=== PATIENT | female | born 1960 | race Caucasian/White ===

== ENCOUNTER 2018-10-25 09:31 | Inpatient (IN) | payer OTHER ==
[2018-10-25 12:27] VITALS: BMI 43.4
--- NOTE | 2018-10-25 12:59 | HP ---
CIWA Score Nausea/Vomitin Muscle Tremors: 2 Anxiety: 2 Agitation: 2 Paroxysmal Sweats: 1-Minimal Palms Moist Orientation: 0-Oriented Tacttile Disturbances: 1-Very Mild Itch/Numbness Auditory Disturbances: 1-Very Mild Visual Disturbances: 0-None Headache: 2-Mild CIWA-Ar Total Score: 13 - Admission Criteria [facility]ASAS Guidelines: Admission for Medically Managed Detox: Requires at least one of the followin. CIWA greater than 12 2. Seizures within the past 24 hours 3. Delirium tremens within the past 24 hours 4. Hallucinations within the past 24 hours 5. Acute intervention needed for co occurring medical disorder 6. Acute intervention needed for co occurring psychiatric disorder 7. Severe withdrawal that cannot be handled at a lower level of care (continued vomiting, continued diarrhea, abnormal vital signs) requiring intravenous medication and/or fluids 8. Patient presents the following: CIWA greater than 12 Admission Criteria Met: Admission criteria met Admission ROS [facility] - HPI Chief Complaint: i need help to stop drinking alcohol and marijuana Allergies/Adverse Reactions: Allergies Allergy/AdvReac Type Severity Reaction Status Date / Time No Known Allergies Allergy Verified 10/25/18 13:24 History of Present Illness: this 57 years old female with alcohol and marijuana dependence,seeking detox, last treatment in 06/06 ,unknown facility low back pain herniated disc l1 to l5,arthritis both knees,ambulation with walker syncope alcohol related coughing with greenish mucous for 2 weeks longest sobriety 13 months Exam Limitations: No Limitations - Ebola screening Have you traveled outside of the country in the last 21 days: No Have you had contact with anyone from an Ebola affected area: No Have you been sick,other than usual withdrawal symptoms: No Do you have a fever: No - Review of Systems Constitutional: Loss of Appetite, Malaise, Night Sweats, Changes in sleep, Weakness EENT: reports: Nose Congestion Respiratory: reports: No Symptoms reported, Other (coughing with greenish mucous 2 weeks) Cardiac: reports: Palpitations GI: reports: Nausea, Vomiting, Abdominal cramping : reports: No Symptoms Reported Musculoskeletal: reports: Back Pain, Joint Pain, Muscle Pain, Joint Stiffness, Other (right hip replacement in 2016) Integumentary: reports: Dryness Neuro: reports: Headache, Tremors Endocrine: reports: No Symptoms Reported Hematology: reports: No Symptoms Reported Psychiatric: reports: No Sypmtoms Reported, Judgement Intact, Mood/Affect Appropiate, Orientated x3 Patient History - Patient Medical History Hx Anemia: No Hx Asthma: No Hx Chronic Obstructive Pulmonary Disease (COPD): No Hx Cancer: No Hx Cardiac Disorders: No Hx Congestive Heart Failure: No Hx Hypertension: No Hx Hypercholesterolemia: No Hx Pacemaker: No HX Cerebrovascular Accident: No Hx Seizures: No Hx Dementia: No Hx Diabetes: No Hx Gastrointestinal Disorders: No Hx Liver Disease: No Hx Genitourinary Disorders: No Hx Sexually Transmitted Disorders: No Hx Renal Disease (ESRD): No Hx Thyroid Disease: No Hx Human Immunodeficiency Virus (HIV): No (last 2017 negative) Hx Hepatitis C: No Hx Depression: Yes (NO MED) Hx Suicide Attempt: No Hx Bipolar Disorder: No Hx Schizophrenia: No Other Medical History: no suciidal,no homicidal - Patient Surgical History Past Surgical History: Yes Hx Orthopedic Surgery: Yes (right hip replacement in 2016) - PPD History Documented Results: Negative w/o proof Implanted On Prior [facility] Admission?: Yes Date: 08/26/13 Results: 0 mm PPD to be Administered?: Yes - Reproductive History Patient is a Female of Child Bearing Age (11 -55 yrs old): Yes Last Menstrual Period: 05/04/99 Patient : No - Smoking Cessation Smoking history: Never smoked - Substance & Tx. History Hx Alcohol Use: Yes Hx Substance Use: Yes Substance Use Type: Alcohol, Marijuana Hx Substance Use Treatment: Yes (06/06 did not recal facility) - Substances Abused Alcohol Route: Oral Frequency: Daily Amount used: 3 pints of vodka Age of first use: 24 Date of Last Use: 10/25/18 Marijuana/Hashish Route: Smoking Frequency: 1-3 times last 30 days Amount used: 10$ Age of first use: 57 Date of Last Use: 10/23/18 Family Disease History - Family Disease History Family Disease History: Diabetes: Grandparent, CA: Grandparent, Father ( esophagus), Mother (breast) Admission Physical Exam [facility] - Vital Signs Vital Signs: Vital Signs - 24 hr 10/25/18 12:21 Temperature 96.4 F L Pulse Rate 116 H Respiratory 18 Rate Blood Pressure 143/93 - Physical General Appearance: Yes: Moderate Distress, Tremorous, Irritable, Sweating, Anxious HEENTM: Yes: Normal ENT Inspection, LANCE, Pharynx Normal Respiratory: Yes: Lungs Clear, Normal Breath Sounds, No Respiratory Distress Neck: Yes: Within Normal Limits, Supple, Trachea in good position Breast: Yes: Breast Exam Deferred Cardiology: Yes: Tachycardia Abdominal: Yes: Within Normal Limits, Normal Bowel Sounds, Soft, Pulsatile Mass Genitourinary: Yes: Within Normal Limits Back: Yes: Muscle Spasm Musculoskeletal: Yes: Back pain, Joint Stiffness, Muscle Pain Extremities: Yes: Tremors, Other (ambulation with walker) Neurological: Yes: Within Normal Limits, trial paralegal II-XII NML intact, Alert, Motor Strength 5/5 Integumentary: Yes: Dry Lymphatic: Yes: Within Normal Limits - Diagnostic (1) Alcohol dependence with uncomplicated intoxication Current Visit: Yes Status: Acute (2) Alcohol dependence with intoxication, uncomplicated Current Visit: Yes Status: Acute (3) Low back pain Current Visit: No Status: Acute (4) Herniated intervertebral disc of lumbar spine Current Visit: Yes Status: Acute (5) Arthritis Current Visit: Yes Status: Acute (6) History of right hip replacement Current Visit: Yes Status: Acute (7) Obese Current Visit: Yes Status: Acute (8) Acute bronchitis Current Visit: Yes Status: Acute (9) Walker as ambulation aid Current Visit: Yes Status: Acute Cleared for Admission [facility] - Detox or Rehab [facility] Level of Care: Medically Managed Detox Regimen/Protocol: Librium [facility] Breath Alcohol Content Breath Alcohol Content: 0.200 Urine Pregancy Test - Result Urine Test Results: Negative- NO Line Present Urine Drug Screen - Results Drug Screen Negative: No Urine Drug Screen Results: THC-Marijuana, BZO-Benzodiazepines
[2018-10-25] MEDS ORDERED: LOPERAMIDE HCL 2 MG CAPSULE PO PRN (13:19)
[2018-10-25] MEDS ORDERED: MAG HYDROX/AL HYDROX/SIMETH 30 ML UNIT-DOSE CUP PO PRN (13:19)
[2018-10-25] MEDS ORDERED: MENTHOL/PHENOL 1 EACH UD MM PRN (13:19)
[2018-10-25] MEDS ORDERED: MAGNESIUM HYDROX 2400MG/30ML ORAL SUSPENSION 30 ML CUP PO PRN (13:19)
[2018-10-25] MEDS ORDERED: chlordiazePOXIDE HCL 25 MG CAPSULE PO PRN (13:19)
[2018-10-25] MEDS ORDERED: MAGNESIUM CITRATE 300 ML BOTTLE PO PRN (13:19)
[2018-10-25] MEDS ORDERED: P-EPHED 60MG/TRIPROLIDI 2.5MG TABLET PO PRN (13:19)
--- NOTE | 2018-10-25 15:52 | EKG ---
Test Reason : Blood Pressure : / mmHG Vent. Rate : 103 BPM Atrial Rate : 103 BPM P-R Int : 150 ms QRS Dur : 090 ms QT Int : 354 ms P-R-T Axes : 039 019 037 degrees QTc Int : 463 ms SINUS TACHYCARDIA OTHERWISE NORMAL ECG NO PREVIOUS ECGS AVAILABLE Confirmed by RADHAMES MARCUS MD ([id number]) on 10/25/2018 3:52:15 PM Referred By: Confirmed By:RADHAMES MARCUS MD
[2018-10-25] MEDS: AMOX TR/POT CLAV 500MG/125MG TABLETS (FP) PO SCH (17:25)
[2018-10-25] MEDS: chlordiazePOXIDE HCL 25 MG CAPSULE PO SCH ×2 (17:25→22:23)
[2018-10-25] MEDS: ACETAMINOPHEN 325 MG TABLET (FP) PO PRN ×2 (17:26→22:24)
[2018-10-25] MEDS: guaiFENesin/D-METHORPHAN HB 10 ML UNIT-DOSE CUPS PO PRN (17:26)
[2018-10-25 17:35] LABS: URINE APPEARANCE CLOUDY; URINE BILIRUBIN NEGATIVE (<2.0 mg/dL); URINE COLOR YELLOW; URINE GLUCOSE (UA) NEGATIVE (NEGATIVE); URINE KETONE NEGATIVE (NEGATIVE); URINE LEUK ESTERASE 3+ (NEGATIVE); URINE NITRITE NEGATIVE (NEGATIVE); URINE PROTEIN 1+ (NEGATIVE); URINE UROBILINOGEN NEGATIVE mg/dL (0.2-1.0)
[2018-10-25 19:38] LABS: EPI CELLS RARE /HPF (FEW)
[2018-10-25 19:39] LABS: URINE MUCUS RARE
[2018-10-25] MEDS: THIAMINE HCL 100 MG TABLET (FP) PO SCH (22:23)
[2018-10-25] MEDS: MELATONIN 5 MG TABLETS PO PRN (22:24)
[2018-10-26] MEDS: chlordiazePOXIDE HCL 25 MG CAPSULE PO SCH ×4 (05:09→22:51)
[2018-10-26] MEDS: AMOX TR/POT CLAV 500MG/125MG TABLETS (FP) PO SCH ×2 (07:56→20:18)
[2018-10-26 10:13] LABS: HEMOGLOBIN 12.2 GM/dL (10.7-15.3); MCH 33.6 pg (25.7-33.7); MCHC 33.9 g/dl (32.0-36.0); MEAN PLT VOLUME 9.3 fl (7.5-11.1); PLATELET COUNT 296 K/MM3 (134-434); RBC 3.64 M/mm3 (3.60-5.2); RDW 17.9 % (11.6-15.6); WHITE BLOOD COUNT 8.4 K/mm3 (4.0-10.0)
[2018-10-26] MEDS: PRENATAL VITAMINS W/ FOLIC ACID TABLET (FP) PO SCH (10:31)
[2018-10-26] MEDS: guaiFENesin/D-METHORPHAN HB 10 ML UNIT-DOSE CUPS PO PRN (10:34)
[2018-10-26 11:28] LABS: ALBUMIN 3.3 g/dl (3.4-5.0); ALK PHOS 100 U/L (45-117); ANION GAP 13 MMOL/L (8-16); BILIRUBIN,TOTAL 0.5 mg/dL (0.2-1); BLOOD UREA NITROGEN 8 mg/dL (7-18); CALCIUM 8.3 mg/dL (8.5-10.1); CHLORIDE 106 mmol/L (98-107); CO2 24 mmol/L (21-32); CREATININE 0.9 mg/dL (0.55-1.3); GLUCOSE,RANDOM 124 mg/dL (74-106); POTASSIUM 3.9 mmol/L (3.5-5.1); SGOT/AST 80 U/L (15-37); SGPT/ALT 82 U/L (13-61); SODIUM 143 mmol/L (136-145); TOT PROT 7.1 g/dl (6.4-8.2)
--- NOTE | 2018-10-26 12:41 | PN ---
[facility] CIWA - CIWA Score Nausea/Vomitin-Mild Nausea/No Vomiting Muscle Tremors: 4-Moderate,w/Arms Extend Anxiety: 3 Agitation: 3 Paroxysmal Sweats: 3 Orientation: 0-Oriented Tacttile Disturbances: 0-None Auditory Disturbances: 0-None Visual Disturbances: 0-None Headache: 1-Very Mild CIWA-Ar Total Score: 15 S Progress Note (SOAP) Subjective: interrupted sleep agitation anxiety sweats shakes body aches Objective: 10/26/18 12:39 Vital Signs Temperature 96.8 F L 10/26/18 11:44 Pulse Rate 104 H 10/26/18 11:44 Respiratory Rate 19 10/26/18 11:44 Blood Pressure 136/83 10/26/18 11:44 O2 Sat by Pulse Oximetry (%) Laboratory Tests 10/25/18 10/25/18 10/26/18 14:01 14:08 06:00 WBC 8.4 RBC 3.64 Hgb 12.2 Hct 36.0 MCV 99.0 H MCH 33.6 D MCHC 33.9 RDW 17.9 H Plt Count 296 D MPV 9.3 Sodium Potassium Chloride Carbon Dioxide Anion Gap BUN Creatinine Creat Clearance w eGFR Random Glucose Calcium Total Bilirubin AST ALT Alkaline Phosphatase Total Protein Albumin Urine Color Yellow Urine Appearance Cloudy Urine pH 5.0 Ur Specific [place] 1.028 Urine Protein 1+ H Urine Glucose (UA) Negative Urine Ketones Negative Urine Blood Negative Urine Nitrite Negative Urine Bilirubin Negative Urine Urobilinogen Negative Ur Leukocyte Esterase 3+ H Urine WBC (Auto) 547 Urine RBC (Auto) 6 Ur Epithelial Cells Rare Urine Mucus Rare HIV 1&2 Antibody Screen Negative HIV P24 Antigen Negative 10/26/18 06:00 WBC RBC Hgb Hct MCV MCH MCHC RDW Plt Count MPV Sodium 143 Potassium 3.9 Chloride 106 Carbon Dioxide 24 Anion Gap 13 BUN 8 Creatinine 0.9 Creat Clearance w eGFR > 60 Random Glucose 124 H Calcium 8.3 L Total Bilirubin 0.5 AST 80 H ALT 82 H Alkaline Phosphatase 100 Total Protein 7.1 Albumin 3.3 L Urine Color Urine Appearance Urine pH Ur Specific [place] Urine Protein Urine Glucose (UA) Urine Ketones Urine Blood Urine Nitrite Urine Bilirubin Urine Urobilinogen Ur Leukocyte Esterase Urine WBC (Auto) Urine RBC (Auto) Ur Epithelial Cells Urine Mucus HIV 1&2 Antibody Screen HIV P24 Antigen aaox3 ambulating no acute distress Assessment: 10/26/18 12:41 withdrawal sx Plan: continue detox increase fluids cont with ABX as ordered
[2018-10-26] MEDS: hydrOXYzine PAMOATE 50 MG CAPSULE (FP) PO PRN (21:54)
[2018-10-26] MEDS: THIAMINE HCL 100 MG TABLET (FP) PO SCH (21:54)
[2018-10-26] MEDS: IBUPROFEN 400 MG TABLET (FP) PO PRN (21:55)
[2018-10-27] MEDS: chlordiazePOXIDE HCL 25 MG CAPSULE PO SCH ×2 (06:27→10:46)
[2018-10-27] MEDS: IBUPROFEN 400 MG TABLET (FP) PO PRN ×2 (06:28→15:30)
[2018-10-27] MEDS: AMOX TR/POT CLAV 500MG/125MG TABLETS (FP) PO SCH ×2 (08:06→17:26)
[2018-10-27] MEDS: PRENATAL VITAMINS W/ FOLIC ACID TABLET (FP) PO SCH (10:46)
[2018-10-27] MEDS: guaiFENesin/D-METHORPHAN HB 10 ML UNIT-DOSE CUPS PO PRN ×3 (10:47→22:31)
[2018-10-27 13:34] LABS: URINE APPEARANCE CLEAR; URINE BILIRUBIN NEGATIVE (<2.0 mg/dL); URINE COLOR AMBER; URINE GLUCOSE (UA) NEGATIVE (NEGATIVE); URINE KETONE TRACE (NEGATIVE); URINE LEUK ESTERASE NEGATIVE (NEGATIVE); URINE NITRITE NEGATIVE (NEGATIVE); URINE PROTEIN 1+ (NEGATIVE)
[2018-10-27 13:57] LABS: CALCIUM OXALATE CRYSTALS FEW /hpf (NONE SEEN); EPI CELLS RARE /HPF (FEW); URINE BACTERIA RARE /hpf (NONE SEEN); URINE MUCUS RARE
--- NOTE | 2018-10-27 14:19 | PN ---
S CIWA - CIWA Score Nausea/Vomitin Muscle Tremors: 2 Anxiety: 2 Agitation: 2 Paroxysmal Sweats: 2 Orientation: 0-Oriented Tacttile Disturbances: 2-Mild Itch/Numbness/Burn Auditory Disturbances: 1-Very Mild Visual Disturbances: 1-Very Mild Sensitivity Headache: 1-Very Mild CIWA-Ar Total Score: 15 S Progress Note (SOAP) Subjective: Hip pain, r/t OA, diarrhea, shakes and sweats Objective: 10/27/18 14:18 Vital Signs 10/27/18 10/27/18 10/27/18 07:29 09:34 14:08 Temperature 98.2 F 98.2 F 98.4 F Pulse Rate 70 113 H 102 H Respiratory 18 19 18 Rate Blood Pressure 124/88 135/76 146/82 Laboratory Last Values WBC 8.4 K/mm3 (4.0-10.0) 10/26/18 06:00 RBC 3.64 M/mm3 (3.60-5.2) 10/26/18 06:00 Hgb 12.2 GM/dL (10.7-15.3) 10/26/18 06:00 Hct 36.0 % (32.4-45.2) 10/26/18 06:00 MCV 99.0 fl (80-96) H 10/26/18 06:00 MCH 33.6 pg (25.7-33.7) D 10/26/18 06:00 MCHC 33.9 g/dl (32.0-36.0) 10/26/18 06:00 RDW 17.9 % (11.6-15.6) H 10/26/18 06:00 Plt Count 296 K/MM3 (134-434) D 10/26/18 06:00 MPV 9.3 fl (7.5-11.1) 10/26/18 06:00 Sodium 143 mmol/L (136-145) 10/26/18 06:00 Potassium 3.9 mmol/L (3.5-5.1) 10/26/18 06:00 Chloride 106 mmol/L (98-107) 10/26/18 06:00 Carbon Dioxide 24 mmol/L (21-32) 10/26/18 06:00 Anion Gap 13 MMOL/L (8-16) 10/26/18 06:00 BUN 8 mg/dL (7-18) 10/26/18 06:00 Creatinine 0.9 mg/dL (0.55-1.3) 10/26/18 06:00 Creat Clearance w eGFR > 60 (>60) 10/26/18 06:00 Random Glucose 124 mg/dL (74-106) H 10/26/18 06:00 Calcium 8.3 mg/dL (8.5-10.1) L 10/26/18 06:00 Total Bilirubin 0.5 mg/dL (0.2-1) 10/26/18 06:00 AST 80 U/L (15-37) H 10/26/18 06:00 ALT 82 U/L (13-61) H 10/26/18 06:00 Alkaline Phosphatase 100 U/L (45-117) 10/26/18 06:00 Total Protein 7.1 g/dl (6.4-8.2) 10/26/18 06:00 Albumin 3.3 g/dl (3.4-5.0) L 10/26/18 06:00 Urine Color [place] 10/27/18 11:11 Urine Appearance Clear 10/27/18 11:11 Urine pH 5.0 (5.0-8.0) 10/27/18 11:11 Ur Specific [place] 1.028 (1.010-1.035) 10/27/18 11:11 Urine Protein 1+ (NEGATIVE) H 10/27/18 11:11 Urine Glucose (UA) Negative (NEGATIVE) 10/27/18 11:11 Urine Ketones Trace (NEGATIVE) H 10/27/18 11:11 Urine Blood Negative (NEGATIVE) 10/27/18 11:11 Urine Nitrite Negative (NEGATIVE) 10/27/18 11:11 Urine Bilirubin Negative (<2.0 mg/dL) 10/27/18 11:11 Urine Urobilinogen 2.0 mg/dL (0.2-1.0) H 10/27/18 11:11 Ur Leukocyte Esterase Negative (NEGATIVE) 10/27/18 11:11 Urine WBC (Auto) 5 /hpf (3-5) 10/27/18 11:11 Urine RBC (Auto) 1 /hpf (0-3) 10/27/18 11:11 Ur Epithelial Cells Rare /HPF (FEW) 10/27/18 11:11 Calcium Oxalate Crystal Few /hpf (NONE SEEN) 10/27/18 11:11 Urine Bacteria Rare /hpf (NONE SEEN) 10/27/18 11:11 Urine Mucus Rare 10/27/18 11:11 RPR Titer Nonreactive (NONREACTIVE) 10/26/18 06:00 HIV 1&2 Antibody Screen Negative 10/25/18 14:08 HIV P24 Antigen Negative 10/25/18 14:08 Labs noted Assessment: 10/27/18 14:18 Withdrawal sx Plan: Continue detox
[2018-10-27] MEDS: chlordiazePOXIDE 5 MG CAPSULE PO SCH ×2 (17:26→22:30)
[2018-10-27] MEDS: THIAMINE HCL 100 MG TABLET (FP) PO SCH (22:30)
[2018-10-27] MEDS: ACETAMINOPHEN 325 MG TABLET (FP) PO PRN (22:31)
[2018-10-27] MEDS: MELATONIN 5 MG TABLETS PO PRN (22:31)
[2018-10-28] MEDS: chlordiazePOXIDE 5 MG CAPSULE PO SCH ×2 (05:56→10:25)
[2018-10-28] MEDS: IBUPROFEN 400 MG TABLET (FP) PO PRN ×2 (05:57→22:15)
[2018-10-28] MEDS: AMOX TR/POT CLAV 500MG/125MG TABLETS (FP) PO SCH ×2 (07:19→17:18)
[2018-10-28] MEDS: PRENATAL VITAMINS W/ FOLIC ACID TABLET (FP) PO SCH (10:25)
[2018-10-28] MEDS: ACETAMINOPHEN 325 MG TABLET (FP) PO PRN (10:26)
--- NOTE | 2018-10-28 14:24 | PN ---
[facility] Progress Note (SOAP) Subjective: feeling better ambulate with walker x 3 years since right hip replacement plan to have left hip replacement soon sleep better at night less sweat no tremor Objective: 10/28/18 14:23 Vital Signs Temperature 96.8 F L 10/28/18 10:00 Pulse Rate 100 H 10/28/18 10:00 Respiratory Rate 16 10/28/18 10:00 Blood Pressure 127/65 10/28/18 10:00 O2 Sat by Pulse Oximetry (%) Laboratory Last Values WBC 8.4 K/mm3 (4.0-10.0) 10/26/18 06:00 RBC 3.64 M/mm3 (3.60-5.2) 10/26/18 06:00 Hgb 12.2 GM/dL (10.7-15.3) 10/26/18 06:00 Hct 36.0 % (32.4-45.2) 10/26/18 06:00 MCV 99.0 fl (80-96) H 10/26/18 06:00 MCH 33.6 pg (25.7-33.7) D 10/26/18 06:00 MCHC 33.9 g/dl (32.0-36.0) 10/26/18 06:00 RDW 17.9 % (11.6-15.6) H 10/26/18 06:00 Plt Count 296 K/MM3 (134-434) D 10/26/18 06:00 MPV 9.3 fl (7.5-11.1) 10/26/18 06:00 Sodium 143 mmol/L (136-145) 10/26/18 06:00 Potassium 3.9 mmol/L (3.5-5.1) 10/26/18 06:00 Chloride 106 mmol/L (98-107) 10/26/18 06:00 Carbon Dioxide 24 mmol/L (21-32) 10/26/18 06:00 Anion Gap 13 MMOL/L (8-16) 10/26/18 06:00 BUN 8 mg/dL (7-18) 10/26/18 06:00 Creatinine 0.9 mg/dL (0.55-1.3) 10/26/18 06:00 Creat Clearance w eGFR > 60 (>60) 10/26/18 06:00 Random Glucose 124 mg/dL (74-106) H 10/26/18 06:00 Calcium 8.3 mg/dL (8.5-10.1) L 10/26/18 06:00 Total Bilirubin 0.5 mg/dL (0.2-1) 10/26/18 06:00 AST 80 U/L (15-37) H 10/26/18 06:00 ALT 82 U/L (13-61) H 10/26/18 06:00 Alkaline Phosphatase 100 U/L (45-117) 10/26/18 06:00 Total Protein 7.1 g/dl (6.4-8.2) 10/26/18 06:00 Albumin 3.3 g/dl (3.4-5.0) L 10/26/18 06:00 Urine Color [place] 10/27/18 11:11 Urine Appearance Clear 10/27/18 11:11 Urine pH 5.0 (5.0-8.0) 10/27/18 11:11 Ur Specific [place] 1.028 (1.010-1.035) 10/27/18 11:11 Urine Protein 1+ (NEGATIVE) H 10/27/18 11:11 Urine Glucose (UA) Negative (NEGATIVE) 10/27/18 11:11 Urine Ketones Trace (NEGATIVE) H 10/27/18 11:11 Urine Blood Negative (NEGATIVE) 10/27/18 11:11 Urine Nitrite Negative (NEGATIVE) 10/27/18 11:11 Urine Bilirubin Negative (<2.0 mg/dL) 10/27/18 11:11 Urine Urobilinogen 2.0 mg/dL (0.2-1.0) H 10/27/18 11:11 Ur Leukocyte Esterase Negative (NEGATIVE) 10/27/18 11:11 Urine WBC (Auto) 5 /hpf (3-5) 10/27/18 11:11 Urine RBC (Auto) 1 /hpf (0-3) 10/27/18 11:11 Ur Epithelial Cells Rare /HPF (FEW) 10/27/18 11:11 Calcium Oxalate Crystal Few /hpf (NONE SEEN) 10/27/18 11:11 Urine Bacteria Rare /hpf (NONE SEEN) 10/27/18 11:11 Urine Mucus Rare 10/27/18 11:11 RPR Titer Nonreactive (NONREACTIVE) 10/26/18 06:00 HIV 1&2 Antibody Screen Negative 10/25/18 14:08 HIV P24 Antigen Negative 10/25/18 14:08 lab noted Assessment: 10/28/18 14:24 mild withdrawal sx Plan: medically supervised detox
[2018-10-28] MEDS: chlordiazePOXIDE HCL 10 MG CAPSULE PO SCH ×2 (17:18→22:15)
[2018-10-28] MEDS: hydrOXYzine PAMOATE 50 MG CAPSULE (FP) PO PRN (22:15)
[2018-10-28] MEDS: THIAMINE HCL 100 MG TABLET (FP) PO SCH (22:15)
[2018-10-28] MEDS: guaiFENesin/D-METHORPHAN HB 10 ML UNIT-DOSE CUPS PO PRN (22:15)
[2018-10-29] MEDS: chlordiazePOXIDE HCL 10 MG CAPSULE PO SCH (06:03)
[2018-10-29] MEDS: AMOX TR/POT CLAV 500MG/125MG TABLETS (FP) PO SCH (07:26)
--- NOTE | 2018-10-29 08:24 | DS ---
[facility] Detox Discharge Summary Admission Date: 10/25/18 Discharge Date: 10/29/18 - History Present History: Alcohol Dependence - Physical Exam Results Vital Signs: Vital Signs Temperature 96.1 F L 10/29/18 08:12 Pulse Rate 81 10/29/18 08:12 Respiratory Rate 18 10/29/18 08:12 Blood Pressure 143/77 10/29/18 08:12 O2 Sat by Pulse Oximetry (%) - Treatment Hospital Course: Detox Protocol Followed, Detoxed Safely, Responded well, Discharged Condition Good, Rehab Referral Accepted - Medication Discharge Medications: Ambulatory Orders Acetaminophen [Tylenol Arthritis] 650 mg PO DAILY PRN 10/25/18 - Diagnosis (1) Acute bronchitis Current Visit: Yes Status: Acute (2) Alcohol dependence Current Visit: Yes Status: Chronic Qualifiers: Substance use status: uncomplicated Qualified Code(s): F10.20 - Alcohol dependence, uncomplicated (3) Alcohol dependence with uncomplicated intoxication Current Visit: Yes Status: Acute (4) Arthritis Current Visit: Yes Status: Acute (5) Herniated intervertebral disc of lumbar spine Current Visit: Yes Status: Acute (6) History of right hip replacement Current Visit: Yes Status: Acute (7) Low back pain Current Visit: Yes Status: Acute Qualifiers: Chronicity: chronic (8) Obese Current Visit: Yes Status: Acute (9) Walker as ambulation aid Current Visit: Yes Status: Acute (10) Depression Current Visit: No Status: Acute - AMA Did Patient Leave Against Medical Advice: No (referred to outpatient)
[2018-10-29 09:47] VITALS: BP 131/74; PULSE 108; TEMP 98.8
[2018-10-29] MEDS: PRENATAL VITAMINS W/ FOLIC ACID TABLET (FP) PO SCH (09:50)
== END 2018-10-29 09:51 | disposition other institution (70) | DRG 775 ==
LOC: YASAS 09:31 → Y6N 13:56
PROC: HZ2ZZZZ Detoxification Services for Substance Abuse Treatment (ICD-10-PCS; principal; 2018-10-25)
DX: F10.20 Alcohol dependence, uncomplicated (principal); F12.20 Cannabis dependence, uncomplicated; F32.9 Major depressive disorder, single episode, unspecified; J20.9 Acute bronchitis, unspecified; M12.9 Arthropathy, unspecified; M51.26 Other intervertebral disc displacement, lumbar region; E66.9 Obesity, unspecified; Z68.41 Body mass index [BMI] 40.0-44.9, adult; R26.89 Other abnormalities of gait and mobility; Z99.89 Dependence on other enabling machines and devices; Z96.641 Presence of right artificial hip joint
CPT/HCPCS: 36415; 80053; 81003; 81015; 85027; 86593; 87389; 93005; 93010

== ENCOUNTER 2018-10-29 10:27 | Inpatient (IN) | payer OTHER ==
--- NOTE | 2018-10-29 09:52 | HP ---
[facility] Rehab Assess/Revision - Admission History Admitted to Rehab from: [facility] - Findings Detox History & Physical reviewed: Yes Concur with findings: Yes Inpatient Rehab Admission - Initial Determination Are CD services needed?: Yes Free of communicable disease: Yes Not in need of hospitalization: Yes - Rehab Admission Criteria Poor recovery environment: Yes Comorbidities: Yes Lacks judgement: Yes
[~2018-10-29 10:27] MED LIST: IBUPROFEN 400 MG TABLET (FP) PO PRN; LOPERAMIDE HCL 2 MG CAPSULE PO PRN; MAG HYDROX/AL HYDROX/SIMETH 30 ML UNIT-DOSE CUP PO PRN; MAGNESIUM CITRATE 300 ML BOTTLE PO PRN; MAGNESIUM HYDROX 2400MG/30ML ORAL SUSPENSION 30 ML CUP PO PRN; MENTHOL/PHENOL 1 EACH UD MM PRN; P-EPHED 60MG/TRIPROLIDI 2.5MG TABLET PO PRN
[2018-10-29 11:23] VITALS: BMI 40.4
[2018-10-29] MEDS: PRENATAL VITAMINS W/ FOLIC ACID TABLET (FP) PO SCH (14:00)
--- NOTE | 2018-10-29 14:04 | HP ---
Psychiatrist Admission - Data Date of interview: 10/29/18 Admission source: [address] [place] [address] Identifying data: This is the first admission to [address] [place] [address] for this 57 years old single female,resides alone supported by [facility]. Medical History: H/O Hip replacement,Arthritis,Disk disease. Psychiatric History: Sleeping difficulties on and off,no previous psychiatric admissions ,no suicidal attempts. Physical/Sexual Abuse/Trauma History: Denies Vital Signs: Vital Signs - 24 hr 10/29/18 10/29/18 11:04 11:21 Temperature 97.5 F L 97.5 F L Pulse Rate 97 H 97 H Respiratory 18 18 Rate Blood Pressure 112/79 112/79 Allergies/Adverse Reactions: Allergies Allergy/AdvReac Type Severity Reaction Status Date / Time No Known Allergies Allergy Verified 10/25/18 13:24 Date of last physical exam: 10/29/18 Concur with the findings of this exam: Yes - Substance Abuse/Tx History Hx Alcohol Use: Yes (drinking since 23 yo,[place] mixed with juces) Hx Substance Use: No Substance Use Type: Alcohol Hx Substance Use Treatment: Yes (longest abstinence 13 monhts) Mental Status Exam - Mental Status Exam Alert and Oriented to: Time, Place, Person Cognitive Function: Grossly Intact Patient Appearance: Unkempt Mood: Sad Affect: Mood Congruent Patient Behavior: Cooperative Speech Pattern: Clear Voice Loudness: Normal Thought Process: Goal Oriented Thought Disorder: Not Present Hallucinations: Denies Suicidal Ideation: Denies Homicidal Ideation: Denies Insight/Judgement: Fair Sleep: Fair Appetite: Good Muscle strength/Tone: Normal Gait/Station: Normal Psychiatric Findings - Problem List ([place] 1, 2,3) (1) Arthritis Current Visit: Yes Status: Chronic (2) Herniated intervertebral disc of lumbar spine Current Visit: Yes Status: Chronic (3) History of right hip replacement Current Visit: Yes Status: Chronic (4) Low back pain Current Visit: Yes Status: Acute (5) Obese Current Visit: Yes Status: Chronic (6) Substance-induced sleep disorder Current Visit: Yes Status: Acute (7) Alcohol dependence Current Visit: Yes Status: Chronic Qualifiers: Substance use status: uncomplicated Qualified Code(s): F10.20 - Alcohol dependence, uncomplicated - Initial Treatment Plan Initial Treatment Plan: Benadryl 25 mg po hs.Will monitor progress.
[2018-10-29] MEDS: AMOX TR/POT CLAV 500MG/125MG TABLETS (FP) PO SCH (16:57)
[2018-10-29] MEDS: IBUPROFEN 600 MG TABLET (FP) PO PRN (17:05)
[2018-10-29] MEDS: THIAMINE HCL 100 MG TABLET (FP) PO SCH (21:26)
[2018-10-30] MEDS: IBUPROFEN 600 MG TABLET (FP) PO PRN ×3 (00:07→17:40)
[2018-10-30] MEDS: PRENATAL VITAMINS W/ FOLIC ACID TABLET (FP) PO SCH (03:00)
[2018-10-30] MEDS: ACETAMINOPHEN 325 MG TABLET (FP) PO PRN (06:49)
[2018-10-30] MEDS: AMOX TR/POT CLAV 500MG/125MG TABLETS (FP) PO SCH ×2 (07:20→17:38)
--- NOTE | 2018-10-30 10:38 | PN ---
S Progress Note Note: PATIENT SEEN FOR C/O EPISODIC DIZZINESS, WHICH OCCURRED AFTER GROUP WHEN SHE AROSE FROM CHAIR. PATIENT REPORTS THIS HAPPENING IN THE PAST BUT DENIES ANY RECENT EPISODE. PATIENT EVALUATED IN ROOM AND STATES SYMPTOMS RESOLVED SPONTANEOUSLY. PATIENT DENIES CP, SOB, VISUAL CHANGES AND DIZZINESS AT THIS TIME. Vital Signs Temperature 97.1 F L 10/30/18 07:22 Pulse Rate 106 H 10/30/18 07:22 Respiratory Rate 18 10/30/18 07:22 Blood Pressure 118/81 10/30/18 07:22 O2 Sat by Pulse Oximetry (%) PE: ALERT AND ORIENTED X 3 SKIN WARM AND DRY +PERRLA, MODERATE DILATION OF PUPILS, EOMS INTACT BL EXT FULL ROM, AMB WITH WALKER NEURO: CN [id number] GROSSLY INTACT A/P: DIZZINESS LIKELY RELATED TO POSITION CHANGE RESOLVED WILL CONTINUE TO MONITOR CLINICALLY
[2018-10-30] MEDS ORDERED: FLU VACCINE QUAD 60 MCG/0.5 ML (MDV 18-19) IM ONE (12:00)
[2018-10-30] MEDS ORDERED: PNEUMOC 13-VAL CONJ-DIP CRM/PF 0.5 ML DISP.SYRIN IM ONE (12:00)
[2018-10-30] MEDS ORDERED: PNEUMOCOCCAL 23 VACCINE 0.5 ML VIAL IM ONE (12:00)
[2018-10-30] MEDS: THIAMINE HCL 100 MG TABLET (FP) PO SCH (21:41)
[2018-10-30] MEDS: diphenhydrAMINE HCL 25 MG CAPSULE (FP) PO PRN (22:32)
[2018-10-31] MEDS: hydrOXYzine PAMOATE 50 MG CAPSULE (FP) PO PRN (02:40)
[2018-10-31] MEDS: IBUPROFEN 600 MG TABLET (FP) PO PRN ×2 (02:40→17:54)
[2018-10-31] MEDS: AMOX TR/POT CLAV 500MG/125MG TABLETS (FP) PO SCH ×2 (08:28→17:40)
[2018-10-31] MEDS: ACETAMINOPHEN 325 MG TABLET (FP) PO PRN (08:28)
[2018-10-31] MEDS: PRENATAL VITAMINS W/ FOLIC ACID TABLET (FP) PO SCH (10:08)
[2018-10-31] MEDS ORDERED: PT OWN MED DRAWER 7, Y5N ONE (17:54)
[2018-10-31] MEDS: guaiFENesin/D-METHORPHAN HB 10 ML UNIT-DOSE CUPS PO PRN (17:56)
[2018-10-31] MEDS: THIAMINE HCL 100 MG TABLET (FP) PO SCH (21:48)
[2018-11-01] MEDS: IBUPROFEN 600 MG TABLET (FP) PO PRN (02:36)
[2018-11-01] MEDS: AMOX TR/POT CLAV 500MG/125MG TABLETS (FP) PO SCH ×2 (07:53→18:30)
[2018-11-01] MEDS ORDERED: PT OWN MED DRAWER 7, Y5N ONE ×3 (07:54→22:37)
[2018-11-01] MEDS: PRENATAL VITAMINS W/ FOLIC ACID TABLET (FP) PO SCH (10:07)
[2018-11-01] MEDS: hydrOXYzine PAMOATE 50 MG CAPSULE (FP) PO PRN (10:09)
[2018-11-01] MEDS: LIDOCAINE 5% TOPICAL PATCH TP SCH (12:48)
[2018-11-01] MEDS: THIAMINE HCL 100 MG TABLET (FP) PO SCH (23:40)
[2018-11-01] MEDS: LIDOCAINE PATCH REMOVAL MC SCH (23:40)
[2018-11-02] MEDS: IBUPROFEN 600 MG TABLET (FP) PO PRN ×2 (06:55→18:05)
[2018-11-02] MEDS: AMOX TR/POT CLAV 500MG/125MG TABLETS (FP) PO SCH ×2 (07:02→18:04)
[2018-11-02] MEDS: PRENATAL VITAMINS W/ FOLIC ACID TABLET (FP) PO SCH (10:24)
[2018-11-02] MEDS: LIDOCAINE 5% TOPICAL PATCH TP SCH (10:24)
[2018-11-02] MEDS: hydrOXYzine PAMOATE 50 MG CAPSULE (FP) PO PRN (10:25)
[2018-11-02] MEDS: THIAMINE HCL 100 MG TABLET (FP) PO SCH (21:52)
[2018-11-02] MEDS: LIDOCAINE PATCH REMOVAL MC SCH (21:53)
[2018-11-02] MEDS: diphenhydrAMINE HCL 25 MG CAPSULE (FP) PO PRN (21:54)
[2018-11-03] MEDS: AMOX TR/POT CLAV 500MG/125MG TABLETS (FP) PO SCH (07:55)
[2018-11-03] MEDS ORDERED: PT OWN MED DRAWER 7, Y5N ONE (07:57)
[2018-11-03] MEDS: PRENATAL VITAMINS W/ FOLIC ACID TABLET (FP) PO SCH (10:06)
[2018-11-03] MEDS: LIDOCAINE 5% TOPICAL PATCH TP SCH (10:06)
[2018-11-03] MEDS: IBUPROFEN 600 MG TABLET (FP) PO PRN (17:33)
[2018-11-03] MEDS: LIDOCAINE PATCH REMOVAL MC SCH (21:32)
[2018-11-03] MEDS: THIAMINE HCL 100 MG TABLET (FP) PO SCH (21:32)
[2018-11-04] MEDS: IBUPROFEN 600 MG TABLET (FP) PO PRN (06:41)
[2018-11-04] MEDS: ACETAMINOPHEN 325 MG TABLET (FP) PO PRN (09:59)
[2018-11-04] MEDS: LIDOCAINE 5% TOPICAL PATCH TP SCH (10:00)
[2018-11-04] MEDS: PRENATAL VITAMINS W/ FOLIC ACID TABLET (FP) PO SCH (10:00)
[2018-11-04] MEDS: THIAMINE HCL 100 MG TABLET (FP) PO SCH (23:14)
[2018-11-04] MEDS: LIDOCAINE PATCH REMOVAL MC SCH (23:14)
[2018-11-05] MEDS: IBUPROFEN 600 MG TABLET (FP) PO PRN ×2 (06:30→21:39)
[2018-11-05] MEDS: hydrOXYzine PAMOATE 50 MG CAPSULE (FP) PO PRN (06:32)
[2018-11-05] MEDS: PRENATAL VITAMINS W/ FOLIC ACID TABLET (FP) PO SCH (10:07)
[2018-11-05] MEDS: LIDOCAINE 5% TOPICAL PATCH TP SCH (10:07)
[2018-11-05] MEDS: ACETAMINOPHEN 325 MG TABLET (FP) PO PRN ×2 (10:08→14:10)
[2018-11-05] MEDS: THIAMINE HCL 100 MG TABLET (FP) PO SCH (21:38)
[2018-11-05] MEDS: diphenhydrAMINE HCL 25 MG CAPSULE (FP) PO PRN (21:38)
[2018-11-05] MEDS: LIDOCAINE PATCH REMOVAL MC SCH (21:39)
[2018-11-06] MEDS: IBUPROFEN 600 MG TABLET (FP) PO PRN ×2 (06:34→21:36)
[2018-11-06] MEDS: hydrOXYzine PAMOATE 50 MG CAPSULE (FP) PO PRN (06:34)
[2018-11-06] MEDS: PRENATAL VITAMINS W/ FOLIC ACID TABLET (FP) PO SCH (10:43)
[2018-11-06] MEDS: LIDOCAINE 5% TOPICAL PATCH TP SCH (10:43)
[2018-11-06] MEDS: LIDOCAINE PATCH REMOVAL MC SCH (21:35)
[2018-11-06] MEDS: THIAMINE HCL 100 MG TABLET (FP) PO SCH (21:35)
[2018-11-06] MEDS: MELATONIN 5 MG TABLETS PO PRN (21:35)
[2018-11-06] MEDS: diphenhydrAMINE HCL 25 MG CAPSULE (FP) PO PRN (21:35)
[2018-11-07] MEDS: IBUPROFEN 600 MG TABLET (FP) PO PRN ×2 (06:55→21:25)
[2018-11-07] MEDS: LIDOCAINE 5% TOPICAL PATCH TP SCH (10:08)
[2018-11-07] MEDS: PRENATAL VITAMINS W/ FOLIC ACID TABLET (FP) PO SCH (10:09)
[2018-11-07] MEDS: ACETAMINOPHEN 325 MG TABLET (FP) PO PRN (10:10)
[2018-11-07] MEDS: THIAMINE HCL 100 MG TABLET (FP) PO SCH (21:25)
[2018-11-07] MEDS: MELATONIN 5 MG TABLETS PO PRN (21:25)
[2018-11-07] MEDS: diphenhydrAMINE HCL 25 MG CAPSULE (FP) PO PRN (21:25)
[2018-11-07] MEDS: LIDOCAINE PATCH REMOVAL MC SCH (21:26)
[2018-11-08] MEDS: IBUPROFEN 600 MG TABLET (FP) PO PRN ×3 (06:54→21:41)
[2018-11-08] MEDS: guaiFENesin/D-METHORPHAN HB 10 ML UNIT-DOSE CUPS PO PRN (06:55)
[2018-11-08] MEDS: PRENATAL VITAMINS W/ FOLIC ACID TABLET (FP) PO SCH (10:13)
[2018-11-08] MEDS: LIDOCAINE 5% TOPICAL PATCH TP SCH (10:13)
[2018-11-08] MEDS: ACETAMINOPHEN 325 MG TABLET (FP) PO PRN (10:14)
[2018-11-08] MEDS: diphenhydrAMINE HCL 25 MG CAPSULE (FP) PO PRN (21:41)
[2018-11-08] MEDS: THIAMINE HCL 100 MG TABLET (FP) PO SCH (21:41)
[2018-11-08] MEDS: LIDOCAINE PATCH REMOVAL MC SCH (21:42)
[2018-11-08] MEDS: MELATONIN 5 MG TABLETS PO PRN (21:42)
[2018-11-09] MEDS: IBUPROFEN 600 MG TABLET (FP) PO PRN ×2 (06:48→14:19)
[2018-11-09] MEDS: LIDOCAINE 5% TOPICAL PATCH TP SCH (09:59)
[2018-11-09] MEDS: PRENATAL VITAMINS W/ FOLIC ACID TABLET (FP) PO SCH (09:59)
[2018-11-09] MEDS: ACETAMINOPHEN 325 MG TABLET (FP) PO PRN ×2 (09:59→21:28)
[2018-11-09] MEDS: diphenhydrAMINE HCL 25 MG CAPSULE (FP) PO PRN (21:27)
[2018-11-09] MEDS: LIDOCAINE PATCH REMOVAL MC SCH (21:27)
[2018-11-09] MEDS: THIAMINE HCL 100 MG TABLET (FP) PO SCH (21:28)
[2018-11-10] MEDS: guaiFENesin/D-METHORPHAN HB 10 ML UNIT-DOSE CUPS PO PRN (06:45)
[2018-11-10] MEDS: IBUPROFEN 600 MG TABLET (FP) PO PRN (06:46)
[2018-11-10] MEDS: PRENATAL VITAMINS W/ FOLIC ACID TABLET (FP) PO SCH (09:36)
[2018-11-10] MEDS: ACETAMINOPHEN 325 MG TABLET (FP) PO PRN (09:36)
[2018-11-10] MEDS: LIDOCAINE 5% TOPICAL PATCH TP SCH (09:36)
[2018-11-10] MEDS: LIDOCAINE PATCH REMOVAL MC SCH (23:30)
[2018-11-10] MEDS: THIAMINE HCL 100 MG TABLET (FP) PO SCH (23:31)
[2018-11-11] MEDS: IBUPROFEN 600 MG TABLET (FP) PO PRN ×2 (06:51→19:32)
[2018-11-11] MEDS: guaiFENesin/D-METHORPHAN HB 10 ML UNIT-DOSE CUPS PO PRN (06:52)
[2018-11-11] MEDS: PRENATAL VITAMINS W/ FOLIC ACID TABLET (FP) PO SCH (10:05)
[2018-11-11] MEDS: LIDOCAINE 5% TOPICAL PATCH TP SCH (10:05)
[2018-11-11] MEDS: ACETAMINOPHEN 325 MG TABLET (FP) PO PRN (10:05)
[2018-11-11] MEDS: LIDOCAINE PATCH REMOVAL MC SCH (23:29)
[2018-11-11] MEDS: THIAMINE HCL 100 MG TABLET (FP) PO SCH (23:30)
[2018-11-12] MEDS: IBUPROFEN 600 MG TABLET (FP) PO PRN (06:57)
[2018-11-12] MEDS: guaiFENesin/D-METHORPHAN HB 10 ML UNIT-DOSE CUPS PO PRN (06:58)
[2018-11-12 07:33] VITALS: BP 132/83; PULSE 106; TEMP 97.1
[2018-11-12] MEDS: LIDOCAINE 5% TOPICAL PATCH TP SCH (09:27)
[2018-11-12] MEDS: PRENATAL VITAMINS W/ FOLIC ACID TABLET (FP) PO SCH (09:27)
--- NOTE | 2018-11-12 13:46 | PN ---
[facility] Progress Note Note: Patient is discharged today and referred to [facility] Community Services. Discharge order placed
== END 2018-11-12 09:35 | disposition home or self-care (01) | DRG 772 ==
LOC: YASAS 10:27 → Y3E 10:28
PROVIDERS: ADMIT Psychiatry & Neurology Psychiatry; ATTEND Psychiatry & Neurology Psychiatry
PROC: HZ42ZZZ Group Counseling for Substance Abuse Treatment, Cognitive-Behavioral (ICD-10-PCS; principal; 2018-10-29)
DX: F10.20 Alcohol dependence, uncomplicated (principal); F19.282 Other psychoactive substance dependence with psychoactive substance-induced sleep disorder; R42 Dizziness and giddiness; M19.90 Unspecified osteoarthritis, unspecified site; M51.26 Other intervertebral disc displacement, lumbar region; E66.9 Obesity, unspecified; Z68.41 Body mass index [BMI] 40.0-44.9, adult; Z96.641 Presence of right artificial hip joint
CPT/HCPCS: 90688; 90732; G0008; G0009